=== PATIENT | female | born 1970 ===

== ENCOUNTER 2022-04-07 11:30 | Inpatient (IN) | payer OTHER ==
[~2022-04-07] VITALS: Ht 157.5 cm; Wt 72.6 kg
== END 2022-04-12 13:06 | disposition home or self-care (01) | DRG 743 ==
LOC: O/R 04-09 09:01 → OB/GYN 04-09 09:01 → SURG 04-09 11:30 → OB/GYN 04-09 11:30
PROVIDERS: ADMIT Obstetrics & Gynecology; ATTEND Obstetrics & Gynecology
PROC: 0UT70ZZ Resection of Bilateral Fallopian Tubes, Open Approach (ICD-10-PCS; 2022-04-09)
PROC: 0UT20ZZ Resection of Bilateral Ovaries, Open Approach (ICD-10-PCS; 2022-04-09)
PROC: 0UN10ZZ Release Left Ovary, Open Approach (ICD-10-PCS; 2022-04-09)
PROC: 0DNV0ZZ Release Mesentery, Open Approach (ICD-10-PCS; 2022-04-09)
PROC: 0UT90ZZ Resection of Uterus, Open Approach (ICD-10-PCS; principal; 2022-04-09 11:15)
DX: D25.1 Intramural leiomyoma of uterus (principal); D25.0 Submucous leiomyoma of uterus; N80.0 Endometriosis of uterus; N73.6 Female pelvic peritoneal adhesions (postinfective); Z20.822 Contact with and (suspected) exposure to COVID-19